=== PATIENT | male | born 1995 | race Hispanic/Latino ===

== ENCOUNTER 2017-12-28 17:48 | Emergency (ER) | payer OTHER ==
[2017-12-28] MEDS: CYCLOBENZAPRINE 10 MG TAB PO (20:15)
== END 2017-12-28 20:21 | disposition home or self-care (01) ==
LOC: M ED 17:48
DX: M43.16 Spondylolisthesis, lumbar region (principal)
CPT/HCPCS: 72110

== ENCOUNTER 2017-12-31 09:36 | Emergency (ER) | payer OTHER ==
[2017-12-31 10:51] LABS: BASO % 0.7 % (0.0-1.0); EOS % 0.7 % (0.0-3.0); HEMATOCRIT 44.1 % (42.0-52.0); HEMOGLOBIN 15.3 g/dl (14.0-18.0); IMMATURE GRANULOCYTE % 0.2 % (0-3.0); LYMPH % 22.9 % (24.0-44.0); MEAN CORPUSCULAR HGB CONC 34.7 g/dl (32.0-36.5); MEAN CORPUSCULAR VOLUME 89.3 fl (80.0-96.0); MONO # 0.4 10^3/uL (0.0-0.8); MONO % 9.5 % (0.0-5.0); PLATELET COUNT, AUTOMATED 151 10^3/uL (150-450); RED BLOOD COUNT 4.94 10^6/uL (4.30-6.10); RED CELL DISTRIBUTION WIDTH 11.9 % (11.5-14.5); WHITE BLOOD COUNT 4.6 10^3/uL (4.0-10.0)
[2017-12-31 10:53] LABS: APPEARANCE, URINE CLEAR (CLEAR); BACTERIA, URINE AUTO NEGATIVE (NEGATIVE); BILIRUBIN, URINE AUTO NEGATIVE (NEGATIVE); BLOOD, URINE BLOOD NEGATIVE (NEGATIVE); COLOR, URINE COLORLESS (YELLOW); GLUCOSE, URINE (UA) AUTO NEGATIVE (NEGATIVE); KETONE, URINE AUTO NEGATIVE (NEGATIVE); LEUKOCYTE ESTERASE, URINE AUTO NEGATIVE (NEGATIVE); NITRITE, URINE AUTO NEGATIVE (NEGATIVE); PROTEIN, URINE AUTO NEGATIVE (NEGATIVE); RBC, URINE AUTO 0 /HPF (0-3); SPECIFIC GRAVITY URINE AUTO 1.004 (1.002-1.035); SQUAMOUS EPITHELIAL CELL UR AU 0 /HPF (0-6); UROBILINOGEN, URINE AUTO 0.2 mg/dL (0.0-2.0); WBC, URINE AUTO 0 /HPF (0-3)
[2017-12-31 11:13] LABS: ALBUMIN 4.5 GM/DL (3.2-5.2); ALBUMIN/GLOBULIN RATIO 1.45 (1.00-1.93); ALKALINE PHOSPHATASE 79 U/L (45-117); ALT/SGPT 19 U/L (12-78); ANION GAP 5 MEQ/L (8-16); AST/SGOT 11 U/L (7-37); BILIRUBIN,TOTAL 0.3 MG/DL (0.2-1.0); BLOOD UREA NITROGEN 12 MG/DL (7-18); CALCIUM LEVEL 8.9 MG/DL (8.5-10.1); CARBON DIOXIDE LEVEL 30 MEQ/L (21-32); CHLORIDE LEVEL 106 MEQ/L (98-107); CREATININE FOR GFR 0.94 MG/DL (0.70-1.30); GLOMERULAR FILTRATION RATE > 60.0 (>60); GLUCOSE, FASTING 97 MG/DL (70-100); POTASSIUM SERUM 3.9 MEQ/L (3.5-5.1); SODIUM LEVEL 141 MEQ/L (136-145); TOTAL PROTEIN 7.6 GM/DL (6.4-8.2)
[2017-12-31] MEDS: KETOROLAC 60 MG/2 ML VIAL (J1885) IM (11:22)
== END 2017-12-31 11:39 | disposition home or self-care (01) ==
LOC: M ED 09:36
DX: M54.9 Dorsalgia, unspecified (principal); R19.7 Diarrhea, unspecified; J45.909 Unspecified asthma, uncomplicated; F17.200 Nicotine dependence, unspecified, uncomplicated
CPT/HCPCS: J1885

== ENCOUNTER 2019-05-20 07:39 | Emergency (ER) | payer OTHER ==
[~2019-05-20] VITALS: Ht 172.7 cm; Wt 63.6 kg
[~2019-05-20 07:39] MED LIST: CYCL10TA PO; IMOD2TAB16 PO; NAPR-885 PO
[2019-05-20] MEDS ORDERED: IBUP-1022 (07:56)
--- NOTE | 2019-05-20 10:08 | REP ---
Clinical: Mid lying cervical pain. Technique: Axial noncontrast images from the skull base to the thoracic inlet with coronal and sagittal re-formations. Findings: Sagittal re-formations best demonstrate mild reversal of normal lordosis centered at approximately C4-5. Alignment is otherwise maintained. There is no evidence for acute fracture / compression injury or subluxation. Posterior elements and spinous processes are intact. Spinal canal appears normal and without stenosis. Neural foramen appear patent. Disc spaces are relatively normal. Surrounding soft tissues are unremarkable. Impression: Mild nonspecific reversal of normal lordosis. Otherwise normal examination. Electronically Signed by Jorge Rice MD 05/20/2019 09:59 A
--- NOTE | 2019-05-20 10:34 | REP ---
Clinical: Midline thoracic pain. Technique: AP, lateral, and swimmers views. Findings: Alignment and kyphosis is maintained. Vertebral bodies intact. No acute fracture / compression injury or subluxation. No degenerative changes. Paravertebral soft tissues are normal. Impression: Normal thoracic spine series. Electronically Signed by Jorge Rice MD 05/20/2019 10:26 A
[2019-05-20] MEDS ORDERED: CYCL5TAB PO (11:34)
[2019-05-20 11:41] VITALS: BP 140/76
== END 2019-05-20 11:39 | disposition home or self-care (01) ==
LOC: M ED 07:39
DX: S16.1XXA Strain of muscle, fascia and tendon at neck level, initial encounter (principal); X58.XXXA Exposure to other specified factors, initial encounter; Y92.89 Other specified places as the place of occurrence of the external cause; Y99.1 Military activity; M40.50 Lordosis, unspecified, site unspecified; J45.909 Unspecified asthma, uncomplicated

== ENCOUNTER 2019-08-21 11:17 | Emergency (ER) | payer OTHER ==
[~2019-08-21] VITALS: Ht 172.7 cm; Wt 63.8 kg
[~2019-08-21 11:17] MED LIST changes: +CYCL5TAB PO; +IBUP-1022
[2019-08-21] MEDS ORDERED: ONDANSETRON 4 MG ORAL DISINTEGRATING TAB (Q0162 PER 1MG) PO ONE (11:45)
[2019-08-21 12:27] LABS: INFLUENZA A AMPLIFICATION POSITIVE (NEGATIVE); INFLUENZA B AMPLIFICATION NEGATIVE (NEGATIVE)
[2019-08-21] MEDS ORDERED: ONDA4TAB6 PO (12:42)
[2019-08-21 12:50] VITALS: BP 117/76
== END 2019-08-21 12:51 | disposition home or self-care (01) ==
LOC: M ED 11:17
DX: J09.X2 Influenza due to identified novel influenza A virus with other respiratory manifestations (principal); J45.909 Unspecified asthma, uncomplicated; Z72.0 Tobacco use
CPT/HCPCS: 87502; 99284; Q0162

== ENCOUNTER 2019-11-12 12:15 | Emergency (ER) | payer OTHER ==
[~2019-11-12] VITALS: Ht 172.7 cm; Wt 28.9 kg
[~2019-11-12 12:15] MED LIST changes: +ONDA4TAB6 PO
[2019-11-12 13:01] LABS: BASO % 0.3 % (0.0-1.0); HEMATOCRIT 42.9 % (42.0-52.0); HEMOGLOBIN 14.8 g/dl (13.5-17.5); LYMPH # 0.7 10^3/uL (1.5-5.0); LYMPH % 12.2 % (24.0-44.0); MEAN CORPUSCULAR HEMOGLOBIN 30.8 pg (27.0-33.0); MEAN CORPUSCULAR HGB CONC 34.5 g/dl (32.0-36.5); MEAN CORPUSCULAR VOLUME 89.4 fl (80.0-96.0); MONO # 0.1 10^3/uL (0.0-0.8); NEUTROPHILS % 85.3 % (36.0-66.0); PLATELET COUNT, AUTOMATED 154 10^3/uL (150-450); WHITE BLOOD COUNT 5.9 10^3/uL (4.0-10.0)
--- NOTE | 2019-11-12 13:18 | REP ---
Chest x-ray: Two views. History: Dyspnea and cough . Comparison study: No comparison study . Findings: The lungs are well inflated and free of infiltrate. The pleural angles are sharp. The heart size is normal. Pulmonary vasculature is not increased. No significant bony abnormality is seen. Monitoring electrodes are seen on the PA radiograph. Impression: Negative chest x-ray. Electronically Signed by Yeison Sanchez MD 11/12/2019 01:09 P
[2019-11-12 13:23] LABS: BLOOD UREA NITROGEN 10 MG/DL (7-18); CALCIUM LEVEL 8.7 MG/DL (8.5-10.1); CARBON DIOXIDE LEVEL 23 MEQ/L (21-32); CHLORIDE LEVEL 113 MEQ/L (98-107); CREATININE FOR GFR 0.96 MG/DL (0.70-1.30); GLOMERULAR FILTRATION RATE > 60.0 (>60); GLUCOSE, FASTING 121 MG/DL (70-100); POTASSIUM SERUM 3.4 MEQ/L (3.5-5.1); SODIUM LEVEL 143 MEQ/L (136-145)
[2019-11-12] MEDS ORDERED: POTASSIUM CHLORIDE 10 MEQ SR TABLET PO ONE (13:45)
[2019-11-12] MEDS ORDERED: VENTAER INH (14:38)
[2019-11-12] MEDS ORDERED: PRED20TA PO (14:38)
[2019-11-12 15:03] VITALS: BP 123/83
--- NOTE | 2019-11-12 21:02 | ECGEPIP ---
[facility] - ED Test Date: 2019-11-12 Pat Name: GELY LONG Department: Room: - Gender: Male [employer] Professor: : 1995 Requested By: JACKLYN Billy Order Number: [id number] Reading MD: Bryce Kellogg Measurements Intervals [place] Rate: 87 P: 43 WV: 128 QRS: 71 QRSD: 110 T: 49 QT: 371 QTc: 447 Interpretive Statements SINUS RHYTHM MODERATE INTRAVENTRICULAR CONDUCTION DELAY NO PRIORS FOR COMPARISON Electronically Signed on 11-12-2019 21:01:55 EST by Bryce Kellogg
== END 2019-11-12 15:05 | disposition home or self-care (01) ==
LOC: M ED 12:15 → EDBD 12:15 → M ED 15:05
DX: J45.901 Unspecified asthma with (acute) exacerbation (principal); I45.89 Other specified conduction disorders; Z87.891 Personal history of nicotine dependence

== ENCOUNTER → 2020-02-19 | Outpatient (CLI) | payer OTHER ==
[~2020-02-19] MED LIST changes: +CYCL-707 PO; -CYCL10TA PO; +METHACHOLINE KIT (J7674) INH ONE; +PRED20TA PO; +VENTAER INH
--- NOTE | 2020-02-19 08:30 | PFTRPT ---
Site: [facility], [address] [place], [address] ID: [id number] Name: GELY LONG Visit Date: 02/19/2020 Second ID: [id number] Referring Doctor: KEN LONDON Reviewing Doctor: Андрей Mina MD Traffic Observer: Bonita Allen Age: 24 : 1995 Sex: Male Race: Height: 68.50 Inches Weight: 142.00 Lbs BSA: 1.78 Order IDs: [id number] Requested Test(s): <RESP-PFT.BROCHOPROV> Diagnosis: R06 of albuterol for postbronchodilator. Review Status: Not Reviewed Pre-Bronch Post-Bronch Pred Actual %Pred Actual %Chng SPIROMETRY FVC (L) 5.31 4.60 86 3.97 -13 FEV1 (L) 4.49 3.22 71 3.26 1 FEV1/FVC (%) 85 70 82 82 17 FEF 25% (L/sec) 7.75 4.92 63 5.47 11 FEF 50% (L/sec) 5.37 2.65 49 2.63 FEF 75% (L/sec) 2.11 1.19 56 0.63 -46 FEF 25-75% (L/sec) 4.90 2.31 47 2.19 -4 FEF Max (L/sec) 10.14 6.94 68 6.70 -3 FIVC (L) 3.06 3.00 -1 FIF 50% (L/sec) 5.64 4.15 73 3.34 -19 FIF Max (L/sec) 4.17 3.70 -11 Expiratory Time (sec) 6.88 7.12 3 Back Extrap Vol (L) 0.15 0.18 19 Time To FEFmax (sec) 0.098 0.111 12
== END ==
LOC: M CARPUL 07:03
PROVIDERS: ATTEND Nurse Practitioner Family
DX: R06.00 Dyspnea, unspecified (principal)
CPT/HCPCS: 94070; J7674